=== PATIENT | female | born 1965 | race Caucasian/White ===

== ENCOUNTER 2020-09-15 02:29 | Emergency (ER) | payer OTHER ==
[2020-09-15 03:33] LABS: HEMOGLOBIN 14.4 gm/dl (12.3-15.3); RED BLOOD COUNT 4.91 M/UL (4.00-5.10); WHITE BLOOD COUNT 13.7 K/UL (4.5-11.0)
[2020-09-15] MEDS ORDERED: TORADOL 10 MG T10 MG PO (05:19)
[2020-09-15] MEDS ORDERED: ZOFRAN4 MG PO (05:19)
[2020-09-15] MEDS ORDERED: FLOMAX0.4 MG PO (05:19)
[2020-09-22] MEDS ORDERED: KETOROLAC TROME10 MG PO (10:47)
[2020-09-22] MEDS ORDERED: TAMSULOSIN HCL0.4 MG PO (10:48)
[2020-09-22] MEDS ORDERED: ONDANSETRON HCL4 MG PO (10:48)
[2020-09-22] MEDS ORDERED: AMLODIPINE BESY10 MG PO (10:49)
[2020-09-22] MEDS ORDERED: BISOPROLOL-HCT1 EAC2 PO (10:49)
[2020-09-22] MEDS ORDERED: HYDROXYZINE HCL25 MG PO (10:50)
== END 2020-09-15 05:52 | disposition home or self-care (01) ==
LOC: ER1 02:29
PROVIDERS: Internal Medicine
DX: N13.2 Hydronephrosis with renal and ureteral calculous obstruction (principal); I10 Essential (primary) hypertension; E66.9 Obesity, unspecified; Z90.49 Acquired absence of other specified parts of digestive tract; Z90.710 Acquired absence of both cervix and uterus
CPT/HCPCS: 80053; 83690; 85025; 85610; 85730; 96374; 96375; 99284; J1885; J2270; J2405; J2550; Q9967

== ENCOUNTER → 2020-09-16 | Outpatient (CLI) | payer OTHER ==
[~2020-09-16] MED LIST: AMLODIPINE BESY10 MG PO; BISOPROLOL-HCT1 EAC2 PO; FLOMAX0.4 MG PO; HYDROXYZINE HCL25 MG PO; KETOROLAC TROME10 MG PO; ONDANSETRON HCL4 MG PO; TAMSULOSIN HCL0.4 MG PO; TORADOL 10 MG T10 MG PO; ZOFRAN4 MG PO
== END ==
LOC: EXRD 10:59
DX: N20.0 Calculus of kidney (principal); N28.89 Other specified disorders of kidney and ureter
CPT/HCPCS: 74018

== ENCOUNTER → 2020-09-22 | Day surgery (SDC) | payer OTHER ==
[2020-09-29 19:08] LABS: CA OXALATE DIHYDRATE 20 % (.); CALCIUM OXALATE MONOHYDRATE 80 % (.); COLOR Brown (.); SIZE 5x3 mm (.); WEIGHT 82 mg (.)
== END | disposition home or self-care (01) ==
LOC: OR 07:16
PROVIDERS: Urology
PROC: 0T788DZ Dilation of Bilateral Ureters with Intraluminal Device, Via Natural or Artificial Opening Endoscopic (ICD-10-PCS; 2020-09-22)
PROC: 0TC78ZZ Extirpation of Matter from Left Ureter, Via Natural or Artificial Opening Endoscopic (ICD-10-PCS; principal; 2020-09-22 10:30)
DX: N20.1 Calculus of ureter (principal); I10 Essential (primary) hypertension; E78.5 Hyperlipidemia, unspecified; J45.909 Unspecified asthma, uncomplicated; E78.00 Pure hypercholesterolemia, unspecified; K21.9 Gastro-esophageal reflux disease without esophagitis; G47.30 Sleep apnea, unspecified; E66.01 Morbid (severe) obesity due to excess calories; Z68.43 Body mass index [BMI] 50.0-59.9, adult; Z20.822 Contact with and (suspected) exposure to COVID-19; Z79.899 Other long term (current) drug therapy
CPT/HCPCS: 87635; C1769; C1894; C2617; J1100; J1170; J1956; J2250; J2405; J2704; J3010; J7030; J7120

== ENCOUNTER → 2021-09-07 | Outpatient (CLI) | payer OTHER | LOC: KOH-I 16:05 | DX: R10.9 Unspecified abdominal pain (principal); N20.0 Calculus of kidney | CPT/HCPCS: 74176 ==